=== PATIENT | male | born 1960 | race Hispanic/Latino ===

== ENCOUNTER 2020-03-13 22:04 | Inpatient (IN) | payer SELFPAY ==
[~2020-03-13] VITALS: Ht 180.3 cm; Wt 84.4 kg
[2020-03-13 22:30] LABS: BASOPHILS # (AUTO) 0.1 (0.0-0.1); BASOPHILS % 0.5 % (0.0-1.0); EOSINOPHILS # (AUTO) 0.1 (0.0-0.4); EOSINOPHILS % 0.8 % (0.0-6.0); HEMATOCRIT 46.3 % (38.2-49.6); HEMOGLOBIN 16.1 g/dL (14.0-18.0); LYMPHOCYTES # (AUTO) 2.1 (1.0-3.2); LYMPHOCYTES % 19.6 % (18.0-39.1); MEAN CORPUSCULAR HEMOGLOBIN 28.7 pg (28-32); MEAN CORPUSCULAR HGB CONC 34.8 g/dL (31-35); MEAN CORPUSCULAR VOLUME 82.5 fL (81-99); MONOCYTES % 9.6 % (4.4-11.3); NEUTROPHILS # (AUTO) 7.4 (2.1-6.9); PLATELET COUNT 250 x10e3/uL (140-360); RED BLOOD COUNT 5.61 x10e6/uL (4.3-5.7); RED CELL DISTRIBUTION WIDTH 12.7 % (11.7-14.4)
[2020-03-13 22:49] LABS: ALBUMIN 4.9 g/dL (3.5-5.0); ALBUMIN/GLOBULIN RATIO 1.2 (0.8-2.0); ANION GAP 27.7 mmol/L (8-16); CALCIUM 9.8 mg/dL (8.4-10.2); CREATININE, SERUM 3.85 mg/dL (0.72-1.25); POTASSIUM 4.7 mmol/L (3.5-5.1)
[2020-03-13 22:56] LABS: CREATINE KINASE MB 2.5 ng/mL (0-5.0)
[2020-03-13] MEDS ORDERED: CEFTRIAXONE SOD 1 GM/NS 50 ML 50 ML IV SCH (23:00)
[2020-03-13] MEDS ORDERED: MAGNESIUM SULF 1GRAM/DEXTROSE 100 ML IV PRN (23:00)
[2020-03-13] MEDS ORDERED: AZITHROMYCIN 500MG/NS 250 ML 250 ML IV SCH (23:00)
[2020-03-13] MEDS ORDERED: INSULIN REGULAR, HUMAN 3ML VL 300 UNIT in SODIUM CHLORIDE 0.9% 300 ML IV SCH ×2 (23:00)
[2020-03-13] MEDS ORDERED: DEXTROSE 5%/0.45% SOD CHL 1,000 ML IV SCH (23:00)
[2020-03-13] MEDS ORDERED: POTASSIUM CHLORIDE 20MEQ/100ML 200 ML IV PRN (23:00)
[2020-03-13 23:37] LABS: BILIRUBIN,URINE SMALL (NEGATIVE); CLARITY,URINE SL CLOUDY (CLEAR); COLOR,URINE YELLOW (YELLOW); KETONES,URINE 1+ (NEGATIVE); LEUKOCYTE ESTERASE ,URINE NEGATIVE (NEGATIVE); NITRITE,URINE NEGATIVE (NEGATIVE); PROTEIN,URINE DIPSTICK 2+ (NEGATIVE); URINE UROBILINOGEN 0.2 mg/dL (0.2 - 1)
[2020-03-13 23:42] LABS: BACTERIA,URINE FEW /HPF; EPITHELIAL CELLS,URINE MODERATE /LPF; MUCUS,URINE MODERATE (RARE)
--- NOTE | 2020-03-13 23:50 | Diagnostic Imaging Report ---
EXAMINATION: CHEST SINGLE (PORTABLE) INDICATION: Chest pain COMPARISON: None FINDINGS: TUBES and LINES: None. LUNGS: Normal lung volumes. Lungs are clear. No consolidations. PLEURA: No pleural effusion or pneumothorax. HEART AND MEDIASTINUM: The cardiomediastinal silhouette is unremarkable. BONES AND SOFT TISSUES: No acute osseous lesion. Soft tissues are unremarkable. Degenerative changes. UPPER ABDOMEN: No free air under the diaphragm. IMPRESSION: No acute thoracic radiographic abnormality. Signed by: Carroll Sterling DO on 03/13/2020 11:47 PM
[2020-03-14] VITALS (19 sets, daily range): BP systolic 91–147; BP diastolic 62–110
--- NOTE | 2020-03-14 00:17 | Emergency Department Note ---
History of Present Illnes History of Present Illness Chief Complaint: General Medicine Complaints History of Present Illness This is a 59 year old male REPORTS CRAMPING/PAIN TO BUE, BLE X2 HRS AND DRY NON-PRODUCTIVE COUGH X1 DAY; PT WORKED OUTSIDE ALL DAY, PT IS ALSO A DIABETIC AND DOES NOT TAKE HIS MEDICATIONS OR GO TO DOCTOR . 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 Any updates have been documented here. Past Medical History Recent Fever: No Clinical Suspicion of Infectio: No New/Unexplained Change in Ment: No Past Medical History: Diabetes Past Surgical History: Hernia Repair Social History Smoking Cessation: Never Smoker Alcohol Use: Occasional Any Illegal Drug Use: No Family History Family history of heart diseas: No Review of Systems Review of Systems Constitutional: Reports no symptoms EENTM: Reports no symptoms Cardiovascular: Reports no symptoms Respiratory: Reports no symptoms Gastrointestinal: Reports no symptoms Genitourinary: Reports no symptoms Musculoskeletal: Reports as per HPI Integumentary: Reports no symptoms Neurological: Reports no symptoms Psychological: Reports no symptoms Endocrine: Reports no symptoms Hematological/Lymphatic: Reports no symptoms Physical Exam Related Data Allergies: Coded Allergies: No Known Allergies (Unverified , 03/13/20) Triage Vital Signs Vital Signs Date Time Temp Pulse Resp B/P (MAP) Pulse Ox O2 Delivery O2 Flow Rate FiO2 03/13/20 22:14 98.0 92 18 138/96 99 Room Air Vital signs reviewed: Yes Physical Exam CONSTITUTIONAL Constitutional: Present well-developed, Present well-nourished, Present distr essed (MILD) HENT HENT: Present normocephalic, Present atraumatic, Present oropharynx clear/moist, Present nose normal HENT L/R: Present left ext ear normal, Present right ext ear normal EYES Eyes: Reports PERRL, Reports conjunctivae normal NECK Neck: Present ROM normal PULMONARY Pulmonary: Present effort normal, Present breath sounds normal CARDIOVASCULAR Cardiovascular: Present regular rhythm, Present heart sounds normal, Present capillary refill normal, Present normal rate GASTROINTESTINAL Abdominal: Present soft, Present nontender, Present bowel sounds normal GENITOURINARY Genitourinary: Present exam deferred SKIN Skin: Present warm, Present dry MUSCULOSKELETAL Musculoskeletal: Present ROM normal NEUROLOGICAL Neurological: Present alert, Present oriented x 3, Present no gross motor or sensory deficits PSYCHOLOGICAL Psychological: Present mood/affect normal, Present judgement normal Results Laboratory Result Diagram: 03/13/205 03/13/20 2215 Laboratory Laboratory Tests Test 03/13/20 23:30 03/13/20 22:20 03/13/20 22:15 Urine Color Yellow (YELLOW) Urine Clarity Sl cloudy (CLEAR) Urine pH 5 (5 - 7) Urine Specific [place] 1.030 (1.010-1.025) Urine Protein 2+ (NEGATIVE) Urine Glucose (UA) 1+ (NEGATIVE) Urine Ketones 1+ (NEGATIVE) Urine Blood Trace (NEGATIVE) Urine Nitrite Negative (NEGATIVE) Urine Bilirubin Small (NEGATIVE) Urine Urobilinogen 0.2 mg/dL (0.2 - 1) Urine Leukocyte Esterase Negative (NEGATIVE) Urine RBC 6-10 /HPF (0-5) Urine WBC 6-10 /HPF (0-5) Urine Epithelial Cells Moderate /LPF (NONE) Urine Bacteria Few /HPF (NONE) Urine Mucus Moderate (RARE) Coronavirus (PCR) Detected (NOTDETECTED) White Blood Count 10.77 x10e3/uL (4.8-10.8) Red Blood Count 5.61 x10e6/uL (4.3-5.7) Hemoglobin 16.1 g/dL (14.0-18.0) Hematocrit 46.3 % (38.2-49.6) Mean Corpuscular Volume 82.5 fL (81-99) Mean Corpuscular Hemoglobin 28.7 pg (28-32) Mean Corpuscular Hemoglobin Concent 34.8 g/dL (31-35) Red Cell Distribution Width 12.7 % (11.7-14.4) Platelet Count 250 x10e3/uL (140-360) Neutrophils (%) (Auto) 69.0 % (38.7-80.0) Lymphocytes (%) (Auto) 19.6 % (18.0-39.1) Monocytes (%) (Auto) 9.6 % (4.4-11.3) Eosinophils (%) (Auto) 0.8 % (0.0-6.0) Basophils (%) (Auto) 0.5 % (0.0-1.0) Neutrophils # (Auto) 7.4 (2.1-6.9) Lymphocytes # (Auto) 2.1 (1.0-3.2) Monocytes # (Auto) 1.0 (0.2-0.8) Eosinophils # (Auto) 0.1 (0.0-0.4) Basophils # (Auto) 0.1 (0.0-0.1) Absolute Immature Granulocyte (auto 0.05 x10e3/uL (0-0.1) Sodium Level 131 mmol/L (136-145) Potassium Level 4.7 mmol/L (3.5-5.1) Chloride Level 95 mmol/L (98-107) Carbon Dioxide Level 13 mmol/L (22-29) Anion Gap 27.7 mmol/L (8-16) Blood Urea Nitrogen 37 mg/dL (7-26) Creatinine 3.85 mg/dL (0.72-1.25) Estimat Glomerular Filtration Rate 16 ML/MIN (60-) BUN/Creatinine Ratio 10 (6-25) Glucose Level 486 mg/dL (74-118) Calcium Level 9.8 mg/dL (8.4-10.2) Magnesium Level 2.4 MG/DL (1.3-2.1) Total Bilirubin 0.7 mg/dL (0.2-1.2) Aspartate Amino Transf (AST/SGOT) 24 IU/L (5-34) Alanine Aminotransferase (ALT/SGPT) 29 IU/L (0-55) Alkaline Phosphatase 129 IU/L (40-150) Creatine Kinase 217 IU/L (30-200) Creatine Kinase MB 2.50 ng/mL (0-5.0) Troponin I 0.028 ng/mL (0-0.300) Total Protein 9.0 g/dL (6.5-8.1) Albumin 4.9 g/dL (3.5-5.0) Globulin 4.1 g/dL (2.3-3.5) Albumin/Globulin Ratio 1.2 (0.8-2.0) Laboratory Tests Test 03/13/20 23:30 03/13/20 22:20 03/13/20 22:15 Urine Color Yellow (YELLOW) Urine Clarity Sl cloudy (CLEAR) Urine pH 5 (5 - 7) Urine Specific [place] 1.030 (1.010-1.025) Urine Protein 2+ (NEGATIVE) Urine Glucose (UA) 1+ (NEGATIVE) Urine Ketones 1+ (NEGATIVE) Urine Blood Trace (NEGATIVE) Urine Nitrite Negative (NEGATIVE) Urine Bilirubin Small (NEGATIVE) Urine Urobilinogen 0.2 mg/dL (0.2 - 1) Urine Leukocyte Esterase Negative (NEGATIVE) Urine RBC 6-10 /HPF (0-5) Urine WBC 6-10 /HPF (0-5) Urine Epithelial Cells Moderate /LPF (NONE) Urine Bacteria Few /HPF (NONE) Urine Mucus Moderate (RARE) Coronavirus (PCR) Detected (NOTDETECTED) White Blood Count 10.77 x10e3/uL (4.8-10.8) Red Blood Count 5.61 x10e6/uL (4.3-5.7) Hemoglobin 16.1 g/dL (14.0-18.0) Hematocrit 46.3 % (38.2-49.6) Mean Corpuscular Volume 82.5 fL (81-99) Mean Corpuscular Hemoglobin 28.7 pg (28-32) Mean Corpuscular Hemoglobin Concent 34.8 g/dL (31-35) Red Cell Distribution Width 12.7 % (11.7-14.4) Platelet Count 250 x10e3/uL (140-360) Neutrophils (%) (Auto) 69.0 % (38.7-80.0) Lymphocytes (%) (Auto) 19.6 % (18.0-39.1) Monocytes (%) (Auto) 9.6 % (4.4-11.3) Eosinophils (%) (Auto) 0.8 % (0.0-6.0) Basophils (%) (Auto) 0.5 % (0.0-1.0) Neutrophils # (Auto) 7.4 (2.1-6.9) Lymphocytes # (Auto) 2.1 (1.0-3.2) Monocytes # (Auto) 1.0 (0.2-0.8) Eosinophils # (Auto) 0.1 (0.0-0.4) Basophils # (Auto) 0.1 (0.0-0.1) Absolute Immature Granulocyte (auto 0.05 x10e3/uL (0-0.1) Sodium Level 131 mmol/L (136-145) Potassium Level 4.7 mmol/L (3.5-5.1) Chloride Level 95 mmol/L (98-107) Carbon Dioxide Level 13 mmol/L (22-29) Anion Gap 27.7 mmol/L (8-16) Blood Urea Nitrogen 37 mg/dL (7-26) Creatinine 3.85 mg/dL (0.72-1.25) Estimat Glomerular Filtration Rate 16 ML/MIN (60-) BUN/Creatinine Ratio 10 (6-25) Glucose Level 486 mg/dL (74-118) Calcium Level 9.8 mg/dL (8.4-10.2) Magnesium Level 2.4 MG/DL (1.3-2.1) Total Bilirubin 0.7 mg/dL (0.2-1.2) Aspartate Amino Transf (AST/SGOT) 24 IU/L (5-34) Alanine Aminotransferase (ALT/SGPT) 29 IU/L (0-55) Alkaline Phosphatase 129 IU/L (40-150) Creatine Kinase 217 IU/L (30-200) Creatine Kinase MB 2.50 ng/mL (0-5.0) Troponin I 0.028 ng/mL (0-0.300) Total Protein 9.0 g/dL (6.5-8.1) Albumin 4.9 g/dL (3.5-5.0) Globulin 4.1 g/dL (2.3-3.5) Albumin/Globulin Ratio 1.2 (0.8-2.0) Lab results reviewed: Yes Imaging Imaging results reviewed: Yes Impressions Procedure: [id number] DX/CHEST SINGLE (PORTABLE) Exam Date: 03/13/20 Exam Time: 2300 REPORT STATUS: Signed EXAMINATION: CHEST SINGLE (PORTABLE) INDICATION: Chest pain COMPARISON: None FINDINGS: TUBES and LINES: None. LUNGS: Normal lung volumes. Lungs are clear. No consolidations. PLEURA: No pleural effusion or pneumothorax. HEART AND MEDIASTINUM: The cardiomediastinal silhouette is unremarkable. BONES AND SOFT TISSUES: No acute osseous lesion. Soft tissues are unremarkable. Degenerative changes. UPPER ABDOMEN: No free air under the diaphragm. IMPRESSION: No acute thoracic radiographic abnormality. Signed by: Carlos Sterling DO on 03/13/2020 11:47 PM Dictated By: CARLOS STERLING DO 46 Transcribed By: TIALO on 03/13/202346 COPY TO: MEI RODRIGUEZ MD~ Critical Care Time Total Critical Care Time (min): 31 Critcal care necessary due to: endocrine crisis Critcal care time spent by me: develop tx plan w patient/surrogate, discussion w consultants, discussion w primary provider, interpret cardiac output measures, evaluation patient response to tx, examination of patient, obtaining hx from patient/surrogate, order/perform tx or interventions, order/review laboratory studies, order/review radiographic studies, re-evaluation of patient condition Assessment & Plan Medical Decision Making MDM PT WITH CRAMPING ALL OVER, DRY COUGH CBC, CMP, BLOOD CULTURE, CXR, COVID 19, CARDIAC ENZYMES, UA ORDERED TO EVAL FOR RHABDOMYOLYSIS, DKA, DEHYDRATION, RENAL INSUFFICIENCY, ELECTROLYTE ABNORMALITY FOUND TO BE IN DKA AND ALSO POSITIVE FOR COVID PT STARTED ON DKA INSULIN PROTOCOL I SPOKE WITH DR ARANDA, DR PELAYO, DR SIDDIQI, AND DR ARORA ADMIT TO ICU Assessment & Plan Final Impression: (1) DKA (diabetic ketoacidoses) (2) COVID-19 Depart Disposition: ADMITTED Last Vital Signs Date Time Temp Pulse Resp B/P (MAP) Pulse Ox O2 Delivery O2 Flow Rate FiO2 03/13/20 22:14 98.0 92 18 138/96 99 Room Air Medications in the ED Sodium Chloride 1,000 ml @ 250 mls/hr Q4H IV ; Start 03/13/20 at 23:00; Stop 1 at 22:59 Insulin Human Regular 300 unit/ Sodium Chloride 300 ml @ 10 mls/hr Q24H IV ; Start 03/13/20 at 23:00; Stop 04/12/20 at 22:59 Dextrose/Sodium Chloride 1,000 ml @ 100 mls/hr Q10H IV ; Start 03/13/20 at 23:00; Stop 04/12/20 at 22:59 Potassium Chloride 200 ml @ 100 mls/hr ONCE PRN IV FOR K+ 3.0 OR LESS; Start 03/13/20 at 23:00; Stop 04/12/20 at 22:59 Magnesium Sulfate/ Dextrose 100 ml @ 100 mls/hr ONCE PRN IV IF MAG LEVEL IS LESS THAN 1.8; Start 03/13/20 at 23:00; Stop 03/20/20 at 22:59 Ceftriaxone Sodium 50 ml @ 100 mls/hr Q24H IV ; Start 03/13/20 at 23:00; Stop 03/20/20 at 22:59 Azithromycin 250 ml @ 200 mls/hr Q24H IV ; Start 03/13/20 at 23:00; Stop 03/20/20 at 22:59 MEI RODRIGUEZ MD Mar 14, 2020 00:17
[2020-03-14] MEDS: SODIUM CHLORIDE 0.9% 1000ML 1,000 ML IV SCH ×5 (00:20→14:58)
[2020-03-14] MEDS ORDERED: ONDANSETRON HCL INJ 2MG/ML 2ML 2 MG/ML VIAL IV PRN ×2 (00:30→01:45)
--- OUTSIDE RECORDS SUMMARY | 2020-03-14 01:00 | XMS REPORT | Continuity of Care Document ---
Author Author [facility] Organization [facility] Address [address] [place] [id number] Phone Unavailable Care Team Providers Care Anode Builder Name Role Phone Saul RODRIGUEZ Attphys Unavailable BART [place] Unavailable Problems This patient has no known problems. Allergies, Adverse Reactions, Alerts This patient has no known allergies or adverse reactions. Medications This patient has no known medications. Procedures This patient has no known procedures. Results Test Description Test Time Test Comments Results Result Comments Source CHEST SINGLE (PORTABLE) 2020-03-13 23:46:00 [place] [address] Patient Name: KARLIE DELEON MR #: [id number] : 1960 Age/Sex: 59/M Req #: [id number] Adm Physician: Ordered by: MEI RODRIGUEZ MD Report #: [id number] Location: ER Room/Bed: Procedure: [id number] DX/CHEST SINGLE (PORTABLE) Exam Date: 03/13/20 Exam Time: 2300 REPORT STATUS: Signed EXAMINATION: CHEST SINGLE (PORTABLE) INDICATION: Chest pain COMPARISON: None FINDINGS: TUBES and LINES: None. LUNGS: Normal lung volumes. Lungs are clear. No consolidations. PLEURA: No pleural effusion or pn eumothorax. HEART AND MEDIASTINUM: The cardiomediastinal silhouette is unremarkable. BONES AND SOFT TISSUES: No acute osseous lesion. Soft tissues are unremarkable. Degenerative changes. UPPER ABDOMEN: No free air under the diaphragm. IMPRESSION: No acute thoracic radiographic abnormality. Signed by: Carroll Sterling DO on 03/13/2020 11:47 PM Dictated By: CARROLL STERLING DO 46 Transcribed By: ITALO on 03/13/202346 COPY TO: MEI RODRIGUEZ MD
[2020-03-14] MEDS ORDERED: INSULIN REGULAR, HUMAN 3ML VL 100 UNIT in SODIUM CHLORIDE 0.9% 100 ML 99 ML IV SCH ×4 (01:45→07:45)
[2020-03-14] MEDS ORDERED: ZOLPIDEM TARTRATE 5 MG TAB PO PRN (01:45)
[2020-03-14] MEDS ORDERED: ACETAMINOPHEN 325 MG TAB PO PRN (01:45)
[2020-03-14] MEDS ORDERED: HYDRALAZINE HCL 20 MG/ML VIAL IV PRN (02:00)
[2020-03-14 03:16] LABS: ANION GAP 25.3 mmol/L (8-16); CALCIUM 9.4 mg/dL (8.4-10.2); CREATININE, SERUM 3.63 mg/dL (0.72-1.25); MAGNESIUM 2.7 MG/DL (1.3-2.1); POTASSIUM 3.3 mmol/L (3.5-5.1)
--- NOTE | 2020-03-14 07:03 | NUR ---
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
[2020-03-14 07:14] LABS: HEMATOCRIT 40.7 % (38.2-49.6); HEMOGLOBIN 14.3 g/dL (14.0-18.0); MEAN CORPUSCULAR HEMOGLOBIN 29.5 pg (28-32); MEAN CORPUSCULAR HGB CONC 35.1 g/dL (31-35); MEAN CORPUSCULAR VOLUME 84.1 fL (81-99); PLATELET COUNT 197 x10e3/uL (140-360); RED BLOOD COUNT 4.84 x10e6/uL (4.3-5.7); RED CELL DISTRIBUTION WIDTH 12.9 % (11.7-14.4)
[2020-03-14] MEDS ORDERED: DEXTROSE 50% SYRINGE 50 ML IV PRN ×2 (07:15→13:45)
[2020-03-14 07:45] LABS: ANION GAP 25.2 mmol/L (8-16); CALCIUM 8.5 mg/dL (8.4-10.2); CREATININE, SERUM 3.08 mg/dL (0.72-1.25); MAGNESIUM 2.5 MG/DL (1.3-2.1); POTASSIUM 4.2 mmol/L (3.5-5.1)
[2020-03-14] MEDS ORDERED: SOD CHL 0.45%/POT CHL 20MEQ 1,000 ML IV ONE (07:45)
--- NOTE | 2020-03-14 08:39 | Consultation ---
DATE OF CONSULTATION: Pulmonary Critical Care consultation CHIEF COMPLAINT: Fatigue and dyspnea. HISTORY OF PRESENT ILLNESS: The patient is a 59-year-old man. He reports fatigue and dyspnea on exertion for the past week. He also notes some malaise. He denies any fever. He has not had any cough. The patient also has a history of diabetes. He came to the emergency department yesterday and was found to have an elevated blood sugar of 486+, BUN to creatinine ratio is 37 to 3.85. His carbon dioxide was 13. The patient received some fluids and was started on insulin. He reports some improvement this morning. He still has decreased urine output. A Leggett was placed and had 300 mL of urine. PAST SURGICAL HISTORY: Status post hernia repair. PAST MEDICAL HISTORY: 1. Diabetes. 2. No prior respiratory problems. 3. No prior heart disease. ALLERGIES: NO KNOWN DRUG ALLERGIES. SOCIAL HISTORY: The patient is an occasional smoker. He is an occasional drinker. FAMILY HISTORY: Noncontributory. REVIEW OF SYSTEMS: He denies fever. There is no headache. He has no neck pain. He is not having any chest pain. He has no nausea or vomiting. He has no abdominal pain. He does have some dyspnea on exertion, but no cough. He has no leg edema. PHYSICAL EXAMINATION: VITAL SIGNS: The patient is afebrile. The blood pressure is 102/66, saturation is 97%. The heart rate is 69. HEENT: No facial swelling or erythema. LYMPHATIC: No submandibular, cervical, or supraclavicular adenopathy. CARDIAC: Regular rate and rhythm. Normal S1, S2. LUNGS: Auscultation of lungs reveals crackles at the bases. There is no wheezing. ABDOMEN: Soft, nontender. There is no rebound or guarding. EXTREMITIES: No leg edema or calf tenderness. There is no cyanosis or clubbing. SKIN: No rashes. NEUROLOGICAL: No focal abnormalities. LABORATORY DATA: BUN to creatinine ratio is improved to 43/3.63. The carbon dioxide is 16. The potassium is 3.3. Blood sugars down to 83. White blood cell count is 10.7, hemoglobin 16.1. The platelet count is 250. IMPRESSION: 1. Acute renal failure. 2. Diabetic ketoacidosis. 3. Metabolic acidosis secondary to renal failure and diabetic ketoacidosis. 4. Viral pneumonia and coronavirus disease-19 infection. 5. Hypertension. PLAN: 1. Continue IV hydration and monitoring of urine output. 2. Renal ultrasound. 3. Continue insulin drip. 4. Serum ketones today. 5. Continue current antibiotics. 6. The patient does not require dexamethasone or remdesivir for his COVID-19, because he is not having any respiratory symptoms and is not requiring oxygen. MD ABBE Waggoner/MODL /[id number]
[2020-03-14] MEDS: HEPARIN SOD (PORCINE) 5,000 UNIT/ML VIAL SC SCH ×2 (08:47→20:20)
[2020-03-14 12:28] LABS: ANION GAP 19.5 mmol/L (8-16); CALCIUM 8.4 mg/dL (8.4-10.2); CREATININE, SERUM 2.07 mg/dL (0.72-1.25); MAGNESIUM 2.4 MG/DL (1.3-2.1); POTASSIUM 3.5 mmol/L (3.5-5.1)
[2020-03-14 14:17] LABS: FREE T4 (FREE THYROXINE) 1.01 ng/dL (0.8-1.8); THYROID STIMULATING HORMONE 1.134 uIU/mL (0.350-4.940)
[2020-03-14 14:44] LABS: CREATININE,URINE RANDOM 70.83 mg/dL (63-166); TOTAL PROTEIN, URINE 13.1 mg/dL (1-14)
--- NOTE | 2020-03-14 16:09 | Diagnostic Imaging Report ---
EXAM: Renal Ultrasound INDICATION: Acute kidney injury COMPARISON: None TECHNIQUE: Transverse and longitudinal images of the kidneys and bladder were obtained. FINDINGS: Right Kidney: Length: 11.4 cm Appearance: Normal echogenicity. Collecting system: No hydronephrosis Stones: None Cyst/Mass: None Left Kidney: Length: 11.6 cm Appearance: Normal echogenicity. Collecting system: No hydronephrosis Stones: None Cyst/Mass: None Bladder: Bladder not well distended. No definite mass or calculi. Ureteral jets not visualized. Prevoid volume estimate of 40 cc. IMPRESSION: No hydronephrosis or renal calculi. Signed by: Ze Singh MD on 03/14/2020 4:05 PM
[2020-03-14] MEDS: INSULIN REGULAR, HUMAN 3ML VL 100 UNIT in SODIUM CHLORIDE 0.9% 100 ML IV SCH ×4 (16:17→20:29)
--- NOTE | 2020-03-14 17:52 | History and Physical ---
HISTORY OF PRESENT ILLNESS: Mr. Szymanski is a 59-year-old man with history of diabetes, hypertension, hyperlipidemia, came to the emergency room complaining of 1-week history of shortness of breath with exercise. No fever. No cough. Sugar in the emergency room was found to be elevated. Bicarb was 13. So, the patient was admitted with a diagnosis of DKA. Coronavirus test came back positive. PAST MEDICAL HISTORY: He has diabetes, hypertension, and hyperlipidemia. ALLERGIES: NO KNOWN DRUG ALLERGIES. PAST SURGICAL HISTORY: Hernia repair. SOCIAL HISTORY: He smokes and drinks occasionally. PHYSICAL EXAMINATION: GENERAL: The patient is on droplet isolation. VITAL SIGNS: Temperature is 98, blood pressure 121/82, respiratory rate is 22, O2 saturation is 99%, heart rate is 68. LABORATORY DATA: On the blood work; white count is 10, hemoglobin 14.3, hematocrit 40.7. Coronavirus test came back positive. Potassium 3.5, creatinine went down to 2.07, glucose down to 137. Blood culture is still pending. Chest x-ray shows no acute pulmonary findings. ASSESSMENT: 1. Acute renal failure, improving. 2. Diabetic ketoacidosis. 3. Metabolic acidosis due to renal failure and diabetic ketoacidosis. 4. Viral pneumonia and coronavirus infection. 5. Hypertension. 6. Hyperlipidemia. PLAN: At the present time is to continue IV fluids. Continue insulin drip. Follow up DKA protocol. Continue IV antibiotics. He was seen already by Critical Care, who states he does not require dexamethasone or remdesivir for his coronavirus since he is not having respiratory symptoms. Overall prognosis of the patient remains guarded. MD DARRYL Martínez/MODL /[id number]
--- NOTE | 2020-03-14 19:16 | NUR ---
Pt arrived from ICU to IMCU at 1615. BG 98, insulin drip titrated to 1 unit per protocol.
--- NOTE | 2020-03-14 19:27 | Consultation ---
DATE OF CONSULTATION: 03/14/2020 Initial Consult Note REASON FOR CONSULT: Acute kidney injury. HISTORY OF PRESENT ILLNESS: The patient is a 59-year-old gentleman with past medical history insignificant for any medical history, but he did tell me that he was diagnosed with diabetes about 10 years ago, but he stopped taking his medicines. We are checking the fingersticks as he thought that he is fine. The patient presented with fatigue, dyspnea on exertion and actually having leg and muscle cramps. He was able to make urine till last night when he stopped making any urine. He also had malaise, denied having any fever or chills, he did not have any cough. The patient came to the ER where he was checked, his blood sugar was 486, BUN and creatinine was high, creatinine was 3.85, bicarb was 13. He had a Leggett catheter placed. Since last night he made about 800 cc of urine. PAST SURGICAL HISTORY: History of hernia repair. PAST MEDICAL HISTORY: Diabetes. ALLERGIES: NO KNOW DRUG ALLERGIES. SOCIAL HISTORY: He is an occasional smoker, denies drinking alcohol or drugs. FAMILY HISTORY: Noncontributory. REVIEW OF SYSTEMS: At this time denies shortness of breath, nausea, vomiting, diarrhea, dizziness, chest pain, or blood in urine or stool. Rest of 12-point review of systems being negative as mentioned. PHYSICAL EXAMINATION: GENERAL: Lying in bed, not looking in any distress. He is actually having lunch. VITAL SIGNS: Blood pressure is 101/74, pulse is 73, temperature is 98, respirations about 20 breaths per minute, he is afebrile. NECK: Supple. No JVD. CHEST: Clear. No rhonchi. HEART: S1, S2 normal. No rub. ABDOMEN: Soft, nontender. EXTREMITIES: No edema, cyanosis, or clubbing. : Leggett catheter placed. NEURO: Alert and moving all extremities. LABORATORY DATA: Sodium is 135, potassium 4.2, chloride of 98, bicarb is probably better. Creatinine was 3.08 last one and now the recent one is 2.07. Hemoglobin 14.3, hematocrit of 40.7. He was COVID positive. I reviewed chest x-ray, to me looks pretty clear. ASSESSMENT: 1. Acute kidney injury likely related to ATN volume depletion. 2. Chronic kidney disease. He does have protein in his urine, likely has diabetic nephropathy, but we do not know what his baseline kidney function is. Ultrasound is pending. 3. Hypertension. Blood pressure is stable. 4. COVID positive, on treatment. PLAN: At this time I will order labs, continue IV fluids, discuss with the nurse. Thank you for involving us in the care with this patient. We will continue to follow along. MD KENYATTA Mtz/KELVIN /[id number]
--- NOTE | 2020-03-14 19:37 | History and Physical ---
REASON FOR ADMISSION: COVID-19, shortness of breath. HISTORY OF PRESENT ILLNESS: This patient is a very pleasant 59-year-old male with history of diabetes mellitus. The patient comes in with weakness, not feeling well. He was not short of breath. Came to emergency room. In the emergency room, he was found to have and a glucose of 486. The patient is complaining of DKA. He is being admitted. His COVID-19 came back positive. The patient denies any fever or chills. Denies shortness of breath. Presently, in the intensive care unit because he is on insulin drip. LABORATORY DATA: White count of 10, hemoglobin 14, and hematocrit 40. Sodium 135, potassium 3.5, BUN 38, and creatinine 2.07. His blood culture was negative. Chest x-ray which was done showed there is no acute finding. PHYSICAL EXAMINATION: GENERAL: Currently alert, oriented. VITAL SIGNS: Stable, afebrile, on room air. HEENT: He is not icteric. NECK: Supple. CHEST: Crackles. HEART: S1, S2. ABDOMEN: Soft. Bowel sounds present. EXTREMITIES: No edema. SKIN: No rash. IMPRESSION: 1. Diabetic ketoacidosis. He is clinically doing well. 2. Coronavirus disease-19, upper respiratory congestion. There is no pneumonia. His treatment is basically supportive care. We will discontinue antibiotic. There is no need for decadron. Diabetic control as ordered. We will follow. MD RUKHSANA Jameson/MODL /[id number]
--- NOTE | 2020-03-14 19:55 | NUR ---
DR SIDDIQI'S ORDER FOR THE ONE BAG OF NS WITH KCL RAN OUT AND PT HAS NO FLUIDS ORDERED, CALLED DR ARANDA FOR FLUID ORDERS AND ORDERED TO START D51/2NS @100ML/HR. WILL CONT TO MONITOR.
[2020-03-14] MEDS: DEXTROSE 5%/0.45% SOD CHL 1,000 ML IV SCH (20:08)
--- NOTE | 2020-03-14 20:18 | Consultation ---
DATE OF CONSULTATION: 03/14/2020 Endocrine Consult[address] Patient of Dr. Fox. HISTORY OF PRESENT ILLNESS: This is a 59-year-old white male gentleman, who is referred to me for evaluation of uncontrolled diabetes mellitus and diabetic ketoacidosis. The patient came to the hospital with history of nausea and vomiting. His blood sugar was found to be 406, anion gap was 27.7. Reported the patient is very noncompliant about taking his medications. During the hospital stay, he was also found to be COVID-19. The patient is relatively asymptomatic. He is complaining of mild nausea. PHYSICAL EXAMINATION: GENERAL: Today, the patient is alert, awake, a little bit apprehensive. He is thin built. VITAL SIGNS: His heart rate is around 80, blood pressure is 120/80 mmHg. HEENT: Essentially unremarkable. Thyroid is palpable. Clinically, he is near euthyroid. CHEST: Bilateral vesicular breathing. No rales. CARDIAC: First and second heart sounds. There is no third or fourth heart sounds. Ejection systolic murmur sound grade 2/6. 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 CLINCIAL IMPRESSION: Diabetes mellitus type 1, diabetic ketoacidosis, noncompliance with medication, coronavirus disease 2019 positive. PLAN: At this time is to continue the insulin drip, monitor his blood sugars closely, and advance his diet. Thank you very much for referring this patient. I will follow this patient with you. MD GISSELLE Ahmadi/KELVIN /[id number]
[2020-03-14] MEDS ORDERED: INSULIN GLARGINE 100 UNITS/ML VIAL SQ SCH (21:00)
[2020-03-14 21:06] LABS: ANION GAP 16.1 mmol/L (8-16); CREATININE, SERUM 1.48 mg/dL (0.72-1.25); MAGNESIUM 2.2 MG/DL (1.3-2.1); POTASSIUM 4.1 mmol/L (3.5-5.1)
[2020-03-15] VITALS (7 sets, daily range): BP systolic 94–120; BP diastolic 62–91
[2020-03-15] MEDS: INSULIN REGULAR, HUMAN 3ML VL 100 UNIT in SODIUM CHLORIDE 0.9% 100 ML IV SCH ×4 (00:49→04:13)
[2020-03-15 04:56] LABS: BASOPHILS % 0.5 % (0.0-1.0); EOSINOPHILS # (AUTO) 0.1 (0.0-0.4); EOSINOPHILS % 1.5 % (0.0-6.0); HEMATOCRIT 43.2 % (38.2-49.6); HEMOGLOBIN 14.8 g/dL (14.0-18.0); LYMPHOCYTES # (AUTO) 1.9 (1.0-3.2); LYMPHOCYTES % 22.2 % (18.0-39.1); MEAN CORPUSCULAR HEMOGLOBIN 29.8 pg (28-32); MEAN CORPUSCULAR HGB CONC 34.3 g/dL (31-35); MEAN CORPUSCULAR VOLUME 87.1 fL (81-99); MONOCYTES # (AUTO) 0.6 (0.2-0.8); MONOCYTES % 6.5 % (4.4-11.3); NEUTROPHILS # (AUTO) 5.9 (2.1-6.9); NEUTROPHILS % 68.9 % (38.7-80.0); PLATELET COUNT 188 x10e3/uL (140-360); RED BLOOD COUNT 4.96 x10e6/uL (4.3-5.7)
[2020-03-15 05:11] LABS: ANION GAP 14.4 mmol/L (8-16); BLOOD UREA NITROGEN 28 mg/dL (7-26); BUN/CREATININE RATIO 26 (6-25); CARBON DIOXIDE 17 mmol/L (22-29); CHLORIDE 106 mmol/L (98-107); CREATININE, SERUM 1.09 mg/dL (0.72-1.25); EST GLOMERULAR FILTRATION RATE > 60 ML/MIN (60-); GLUCOSE 170 mg/dL (74-118); MAGNESIUM 2.2 MG/DL (1.3-2.1); POTASSIUM 4.4 mmol/L (3.5-5.1); SODIUM 133 mmol/L (136-145)
[2020-03-15] MEDS: DEXTROSE 5%/0.45% SOD CHL 1,000 ML IV SCH ×2 (06:01→16:28)
[2020-03-15] MEDS: HEPARIN SOD (PORCINE) 5,000 UNIT/ML VIAL SC SCH ×2 (09:02→20:38)
--- NOTE | 2020-03-15 11:25 | Progress Note ---
DATE: 03/15/2020 SUBJECTIVE: Mr. Szymanski is a 59-year-old male with history of diabetes, hypertension, hyperlipidemia, came to the emergency room complaining of one week shortness of breath. Sugar was found to be very elevated. Coronavirus test came back positive. The patient was admitted to [facility], transferred to [facility] and put on insulin drip and treat him with a DKA protocol. Dr. Abdi following the patient. He was found to have a coronavirus test positive. No pneumonia, so no requirement for Decadron antiviral medication. OBJECTIVE: VITAL SIGNS: At present time, temperature is 98.3, blood pressure 120/91, pulse 68, O2 saturation 97% on room air. LABORATORY DATA: On the blood work, coronavirus positive. Potassium 4.4, creatinine went back to normal 1.09. White count 8.48, hemoglobin 14.8, hematocrit 43.2, and glucose 170. Blood culture so far negative. A chest x-ray, no acute findings. Renal ultrasound shows no hydronephrosis. ASSESSMENT: 1. Acute renal failure, resolved. 2. Diabetes ketoacidosis, improving. 3. Coronavirus infection. 4. Hypertension. 5. Hyperlipidemia. PLAN: At present time is to continue insulin drip. Continue IV fluids. Continue antibiotics. If he keeps improving, probably he can be switch to insulin and he does not require any dexamethasone on Remdesivir for his coronavirus. He has been asymptomatic, probably patient will be able to go home in the morning if stable, independent on the consultants, continue to monitor electrolytes and blood sugar. MD DARRYL Martínez/MODL /[id number]
[2020-03-15 12:36] LABS: ANION GAP 16.4 mmol/L (8-16); BLOOD UREA NITROGEN 25 mg/dL (7-26); BUN/CREATININE RATIO 27 (6-25); CALCIUM 8.1 mg/dL (8.4-10.2); CARBON DIOXIDE 17 mmol/L (22-29); CHLORIDE 105 mmol/L (98-107); CREATININE, SERUM 0.91 mg/dL (0.72-1.25); EST GLOMERULAR FILTRATION RATE > 60 ML/MIN (60-); GLUCOSE 154 mg/dL (74-118); MAGNESIUM 2.1 MG/DL (1.3-2.1); POTASSIUM 4.4 mmol/L (3.5-5.1); SODIUM 134 mmol/L (136-145)
[2020-03-15] MEDS ORDERED: DEXTROSE 50% SYRINGE 50 ML IV PRN (14:00)
[2020-03-15] MEDS ORDERED: INSULIN LISPRO 100 UNIT/1 ML 3ML VIAL SQ ONE (14:30)
--- NOTE | 2020-03-15 14:56 | Progress Note ---
DATE: SUBJECTIVE: The patient is feeling better. He has received fluids and insulin. His creatinine is back to normal. PHYSICAL EXAMINATION: VITAL SIGNS: Blood pressure is 117/77, saturation is 100% on room air, and the pulse is 75. The respiratory rate is normal. HEENT: Shows no facial swelling or erythema. LYMPHATIC: Shows no submandibular, cervical, or supraclavicular adenopathy. CARDIAC: Reveals regular rate and rhythm with normal S1 and S2. LUNGS: Auscultation of lungs reveals clear breath sounds bilaterally. There is no wheezing. ABDOMEN: Soft and nontender. There is no rebound or guarding. EXTREMITIES: Show no leg edema or calf tenderness. There is no cyanosis or clubbing. SKIN: Shows no rashes. NEUROLOGICAL: Shows no focal abnormalities. LABORATORY DATA: White blood cell count is 8.4 and hemoglobin is 14.8. The platelet count is 188. The BUN to creatinine ratio is 25 to 0.91. The carbon dioxide is 17 and the chloride is 105. Sodium is 134 and the potassium is 4.4. IMPRESSION: 1. Acute renal failure that is improving. 2. Diabetic ketoacidosis. 3. COVID-19 and viral pneumonia. 4. Hypertension. PLAN: 1. No additional treatment for COVID-19 is necessary at this time. 2. Continue insulin drip and transition to subcutaneous insulin when okay with Endocrinology. 3. Continue to monitor renal function. Kirt Galindo MD LM/MODL /[id number]
[2020-03-15] MEDS: INSULIN LISPRO 100 UNIT/1 ML 3ML VIAL SQ SCH ×2 (16:30→17:08)
--- NOTE | 2020-03-15 17:00 | NUR ---
Discussed castro cath with Dr Saul Galindo. Order to DC the castro and monitor output. Call Dr Saul Galindo if complications arise.
--- NOTE | 2020-03-15 17:00 | NUR ---
Urinary catheter removed per Dr Saul Galindo orders. Balloon deflated of 10cc, clean, intact. No complications noted.
--- NOTE | 2020-03-15 18:07 | Progress Note ---
DATE: SUBJECTIVE: Mr. Szymanski is doing very well. There is no new complaint. He is feeling stronger. REVIEW OF SYSTEMS: Otherwise, unremarkable. PHYSICAL EXAMINATION: GENERAL: He is currently alert and oriented, does not seem to be in acute distress. VITAL SIGNS: Stable. Currently afebrile. HEENT: He is not icteric. NECK: Supple. CHEST: Clear bilateral. HEART: S1, S2. ABDOMEN: Soft. Bowel sounds present. EXTREMITIES: No edema. IMPRESSION: 1. COVID-19; upper respiratory colonization, stable. Diabetic ketoacidosis, improving. Hypertension is stable off antibiotic. Discontinue Leggett catheter. Continue PT/OT. 2. Acute kidney injury, improved. Diabetes controlled per Internal Medicine. Stable from Infectious Disease. MD RUKHSANA Jameson/MODL /[id number]
[2020-03-15 20:24] LABS: ANION GAP 16.3 mmol/L (8-16); BLOOD UREA NITROGEN 22 mg/dL (7-26); BUN/CREATININE RATIO 23 (6-25); CALCIUM 7.9 mg/dL (8.4-10.2); CARBON DIOXIDE 19 mmol/L (22-29); CHLORIDE 103 mmol/L (98-107); CREATININE, SERUM 0.95 mg/dL (0.72-1.25); EST GLOMERULAR FILTRATION RATE > 60 ML/MIN (60-); GLUCOSE 158 mg/dL (74-118); POTASSIUM 4.3 mmol/L (3.5-5.1); SODIUM 134 mmol/L (136-145)
[2020-03-15] MEDS ORDERED: INSULIN GLARGINE 100 UNITS/ML VIAL SQ SCH (21:00)
[2020-03-16 00:17] VITALS: BP 97/70
[2020-03-16 04:00] VITALS: BP 104/67
[2020-03-16 05:20] LABS: BASOPHILS # (AUTO) 0.1 (0.0-0.1); EOSINOPHILS # (AUTO) 0.2 (0.0-0.4); EOSINOPHILS % 4.1 % (0.0-6.0); HEMATOCRIT 39.2 % (38.2-49.6); LYMPHOCYTES # (AUTO) 2.4 (1.0-3.2); LYMPHOCYTES % 45.7 % (18.0-39.1); MEAN CORPUSCULAR HGB CONC 35.7 g/dL (31-35); MEAN CORPUSCULAR VOLUME 89.7 fL (81-99); MONOCYTES # (AUTO) 0.6 (0.2-0.8); MONOCYTES % 10.7 % (4.4-11.3); NEUTROPHILS % 38.3 % (38.7-80.0); PLATELET COUNT 187 x10e3/uL (140-360); RED BLOOD COUNT 4.37 x10e6/uL (4.3-5.7); RED CELL DISTRIBUTION WIDTH 13.5 % (11.7-14.4)
[2020-03-16 05:44] LABS: ANION GAP 15.8 mmol/L (8-16); BLOOD UREA NITROGEN 15 mg/dL (7-26); BUN/CREATININE RATIO 17 (6-25); CALCIUM 7.9 mg/dL (8.4-10.2); CARBON DIOXIDE 20 mmol/L (22-29); CHLORIDE 105 mmol/L (98-107); CREATININE, SERUM 0.87 mg/dL (0.72-1.25); EST GLOMERULAR FILTRATION RATE > 60 ML/MIN (60-); GLUCOSE 173 mg/dL (74-118); POTASSIUM 4.8 mmol/L (3.5-5.1); SODIUM 136 mmol/L (136-145)
[2020-03-16 08:00] VITALS: BP 109/71
[2020-03-16] MEDS: INSULIN LISPRO 100 UNIT/1 ML 3ML VIAL SQ SCH ×2 (09:03→09:05)
[2020-03-16] MEDS: HEPARIN SOD (PORCINE) 5,000 UNIT/ML VIAL SC SCH (09:06)
[2020-03-16] MEDS: DEXTROSE 5%/0.45% SOD CHL 1,000 ML IV SCH (09:07)
[2020-03-16] MEDS ORDERED: NOVOLIN N100 UNIT/1 SQ (11:17)
[2020-03-16] MEDS ORDERED: HUMULIN R100 UNIT/2 SQ (11:17)
[2020-03-16 12:00] VITALS: BP 131/81
--- NOTE | 2020-03-16 12:06 | Discharge Summary ---
ADMIT DIAGNOSES: 1. Diabetic ketoacidosis. 2. Acute renal insufficiency secondary to acute tubular necrosis. 3. COVID-19 infection. DISCHARGE DIAGNOSES: 1. Diabetic ketoacidosis, resolved. 2. Type 2 diabetes mellitus, necessitating insulin therapy. 3. Acute renal insufficiency secondary to acute tubular necrosis, resolved. 4. COVID-19 viral infection, resolving (asymptomatic). HOSPITAL COURSE: This is a 59-year-old man, who was initially admitted to [facility] with diagnosis of acute renal insufficiency secondary to acute tubular necrosis. He was also found to have diabetic ketoacidosis. The patient's diabetic ketoacidosis resolved with intravenous fluids and insulin. The patient was seen by Endocrinology during this hospitalization, namely Dr. Abdi. The patient was also found to be COVID-19 positive during this hospitalization. The patient was subsequently seen by Infectious Disease specialist, namely Dr. Trujillo because of his COVID-19 infection. He received supportive care since he was basically asymptomatic. The patient did not receive dexamethasone or antibiotics during this hospitalization. His main treatment was for his diabetic ketoacidosis. The patient was also seen by sheet metal supervisor during this hospitalization, namely Dr. Kirt Galindo because of his COVID-19 viral infection. His condition on discharge is stable. On admission, the patient's BUN and creatinine was 37 and 3.85 respectively with a glucose of 486. Also, serum bicarbonate was 13 on admission. On day of discharge, the patient's serum bicarbonate was 20 with a serum glucose level of 173 mg/dL. The patient's BUN and creatinine on discharge are 15 and 0.87 respectively. The patient was converted from insulin drip to Lantus insulin 15 units at night and Humalog insulin 8 units 3 times a day with meals. The patient tolerated insulin therapy quite well. The patient's condition on discharge is stable. DISCHARGE MEDICATIONS: 1. NPH insulin 15 units subcutaneous at night. 2. Novolin R insulin 10 units t.i.d. with meals. FOLLOWUP INSTRUCTIONS: The patient was instructed to check his glucose levels twice a day and keep a log. The patient will follow up with either Dr. Fox or myself Dr. Sylvester within the next 7 to 10 days. I informed the patient he can return to work without restrictions on Wednesday, March 25, 2020. MD MARY KATE Parada/ALEXYL /[id number] cc: MD Kirt Jameson MD Kuldip K Kaul, MD MTDD
== END 2020-03-16 12:30 | disposition home or self-care (01) | DRG 177 ==
LOC: ER 22:13 → ERHOLD 03-14 00:58 → ICU 03-14 01:10 → IMCU 03-14 16:13
PROVIDERS: ADMIT Internal Medicine; ATTEND Internal Medicine
DX: U07.1 COVID-19 (principal); E10.10 Type 1 diabetes mellitus with ketoacidosis without coma; N17.0 Acute kidney failure with tubular necrosis; J12.89 Other viral pneumonia; Z79.4 Long term (current) use of insulin; Z91.14 Patient's other noncompliance with medication regimen; I10 Essential (primary) hypertension; E78.5 Hyperlipidemia, unspecified; E10.21 Type 1 diabetes mellitus with diabetic nephropathy; I12.9 Hypertensive chronic kidney disease with stage 1 through stage 4 chronic kidney disease, or unspecified chronic kidney disease; E10.22 Type 1 diabetes mellitus with diabetic chronic kidney disease; N18.9 Chronic kidney disease, unspecified
CPT/HCPCS: 36415; 71045; 76770; 80048; 80053; 81001; 82550; 82553; 82570; 82948; 83036; 83735; 84156; 84439; 84443; 84484; 85007; 85025; 85027; 87040; 93005; 93306; 99284; J0456; J0696; J1644; J1815; J1817; J7030; J7050; U0002

== ENCOUNTER 2020-12-30 09:28 | Emergency (ER) | payer SELFPAY ==
[~2020-12-30] VITALS: Ht 180.3 cm; Wt 84.4 kg
[~2020-12-30 09:28] MED LIST: HUMULIN R100 UNIT/2 SQ; NOVOLIN N100 UNIT/1 SQ
[2020-12-30] MEDS ORDERED: ASPIRIN 81 MG CHEW TAB PO ONE (09:45)
[2020-12-30 10:46] LABS: BASOPHILS % 0.6 % (0.0-1.0); EOSINOPHILS # (AUTO) 0.2 (0.0-0.4); EOSINOPHILS % 2.8 % (0.0-6.0); HEMATOCRIT 39.8 % (38.2-49.6); HEMOGLOBIN 13.4 g/dL (14.0-18.0); LYMPHOCYTES # (AUTO) 1.8 (1.0-3.2); MEAN CORPUSCULAR HEMOGLOBIN 28.9 pg (28-32); MEAN CORPUSCULAR HGB CONC 33.7 g/dL (31-35); MEAN CORPUSCULAR VOLUME 85.8 fL (81-99); MONOCYTES # (AUTO) 0.6 (0.2-0.8); MONOCYTES % 8.8 % (4.4-11.3); NEUTROPHILS # (AUTO) 3.9 (2.1-6.9); NEUTROPHILS % 60.5 % (38.7-80.0); PLATELET COUNT 180 x10e3/uL (140-360); RED BLOOD COUNT 4.64 x10e6/uL (4.3-5.7); RED CELL DISTRIBUTION WIDTH 13.6 % (11.7-14.4)
[2020-12-30 10:51] LABS: CLARITY,URINE CLEAR (CLEAR); COLOR,URINE YELLOW (YELLOW); KETONES,URINE NEGATIVE (NEGATIVE); LEUKOCYTE ESTERASE ,URINE NEGATIVE (NEGATIVE); NITRITE,URINE NEGATIVE (NEGATIVE); PROTEIN,URINE DIPSTICK TRACE (NEGATIVE); URINE UROBILINOGEN 0.2 mg/dL (0.2 - 1)
[2020-12-30] MEDS ORDERED: MORPHINE SULFATE INJ 4 MG/ML INJ 1ML IV STA (10:59)
[2020-12-30] MEDS ORDERED: ONDANSETRON HCL INJ 2MG/ML 2ML 2 MG/ML VIAL IV STA (11:00)
[2020-12-30 11:05] LABS: BACTERIA,URINE RARE /HPF; RBC,URINE 0-5 /HPF (0-5)
[2020-12-30 11:06] LABS: MUCUS,URINE FEW (RARE)
[2020-12-30 11:10] LABS: ALBUMIN 3.5 g/dL (3.5-5.0); ALBUMIN/GLOBULIN RATIO 1.1 (0.8-2.0); ANION GAP 10.3 mmol/L (8-16); CALCIUM 8.3 mg/dL (8.4-10.2); CREATININE, SERUM 0.84 mg/dL (0.72-1.25); POTASSIUM 4.3 mmol/L (3.5-5.1)
[2020-12-30] MEDS ORDERED: PEPCID20 MG PO (12:55)
[2020-12-30] MEDS ORDERED: CEPHALEXIN500 MG PO (12:55)
== END 2020-12-30 13:20 | disposition home or self-care (01) ==
LOC: ER 10:11
DX: R10.31 Right lower quadrant pain (principal); E11.65 Type 2 diabetes mellitus with hyperglycemia
CPT/HCPCS: 36415; 74177; 80053; 81001; 83690; 85025; 93005; 99284; J2270; J2405